=== PATIENT | female | born 1985 | race Caucasian/White ===

== ENCOUNTER 2023-03-31 10:19 | Emergency (ER) | payer OTHER ==
[2023-03-31] MEDS ORDERED: Ketorolac Tromethamine 30 MG/ML VIAL ONE (11:10)
[2023-03-31] MEDS ORDERED: diphenhydrAMINE 50 MG/ML VIAL ONE (11:10)
[2023-03-31] MEDS ORDERED: Metoclopramide HCl 10 MG/2 ML VIAL ONE (11:10)
[2023-03-31 11:59] LABS: SARS-CoV-2 NAA Rapid Test DETECTED (NotDetected)
== END 2023-03-31 12:55 | disposition home or self-care (01) ==
LOC: CSHERS 10:19
DX: U07.1 COVID-19 (principal); G43.919 Migraine, unspecified, intractable, without status migrainosus; F17.210 Nicotine dependence, cigarettes, uncomplicated
CPT/HCPCS: 96365; 96375; J1200; J1885; J2765

== ENCOUNTER 2023-12-11 11:50 | Emergency (ER) | payer OTHER, MEDICAID ==
[~2023-12-11 11:50] MED LIST: Iopamidol 300 61% 100 ML VIAL FS ONE
[2023-12-11] MEDS ORDERED: Ondansetron PF 4 MG/2 ML Vial ONE (12:17)
[2023-12-11] MEDS ORDERED: Ketorolac Tromethamine 30 MG (1 mL) VIAL ONE (12:17)
[2023-12-11 12:45] LABS: #Basophils 0.1 10x3/uL (0.0-0.2); #Monocytes 0.9 10x3/uL (0.0-1.1); #Neutrophils 18.6 10x3/uL (1.5-8.4); %Basophils 0.4 % (0.0-2.0); %Eosinophils 0.1 % (0.0-6.0); %Lymphocytes 8.8 % (18.0-47.0); %Monocytes 4.3 % (0.0-10.0); %Neutrophils 85.6 % (40.0-75.0); Mean Corpuscular HGB CONC 28.6 g/dL (32.0-36.0); Mean Corpuscular Hemoglobin 17.5 pg (27.0-33.0); Mean Corpuscular Volume 61.1 fl (81.6-98.3); Mean Platelet Volume 9.7 fl (7.4-10.4); Platelet Count 453 10x3/uL (150-450); RBC Distribution Width 19.7 % (11.5-14.5); Red Blood Cell (RBC) Count 4.58 10x6/uL (3.90-5.03); White Blood Cell (WBC) Count 21.7 10x3/uL (3.5-10.5)
[2023-12-11 12:56] LABS: BHCG - Serum Negative (NEGATIVE)
[2023-12-11 12:57] LABS: Pregs Control Background? CLEAR/WHITE (CLR/WHITE); Pregs Control Bar Appear? YES (CONTROL BAR)
[2023-12-11 13:01] LABS: ALT (SGPT) 12 U/L (8-55); AST (SGOT) 25 U/L (5-34); Albumin 4.2 g/dL (3.5-5.0); Alkaline Phosphatase 62 U/L (40-110); Anion Gap 15 mmol/L (10-20); BUN (Urea Nitrogen) 10 mg/dL (7.0-18.7); Bilirubin, Total 0.3 mg/dL (0.2-1.2); Calc. Creatinine Clearance 0 mL/min (70-130); Calcium 8.9 mg/dL (7.8-10.44); Carbon Dioxide 23 mmol/L (22-29); Chloride 101 mmol/L (98-107); Estimated GFR 112; Globulin 3.4 g/dL (2.4-3.5); Glucose 101 mg/dL (70-105); Lipase 38 U/L (8-78); Potassium 3.2 mmol/L (3.5-5.1); Protein, Total 7.6 g/dL (6.0-8.3); Sodium 136 mmol/L (136-145)
[2023-12-11 13:15] LABS: Microcytosis MARKED = >30 cells (100X) (0-5/hpf)
[2023-12-11 13:17] LABS: Hypochromia MODERATE=16-30 cells (100X) (0-5/hpf); Stomatocytes MODERATE= 6-15 cells (100X) (0-1/hpf)
[2023-12-11 16:09] LABS: Bilirubin Neg (Negative); Blood, Urine Negative (Negative); Clarity Clear (Clear); Glucose, Urine (Dipstick) Normal (Negative); Ketone, Urine Negative (Negative); Leukocyte Negative (Negative); Nitrite Negative (Negative); Protein, Urine (Dipstick) 15 mg/dl (Neg-Trace); Urobilinogen Normal mg/dL (Less than 2)
[2023-12-11 16:25] LABS: CAUTI Indications for Culture Pelvic or flank pain; RBC/HPF None Seen HPF (0-3); WBC/HPF 0-3 HPF (0-3)
[2023-12-11 16:26] LABS: Bacteria/HPF Rare-Few HPF (None Seen)
[2023-12-11 16:27] LABS: Urine Culture Reflex No No
[2023-12-11] MEDS ORDERED: Potassium Chloride 20 MEQ TAB ONE (16:27)
== END 2023-12-11 16:24 | disposition home or self-care (01) ==
LOC: CSHERS 11:50
DX: N83.201 Unspecified ovarian cyst, right side (principal); J45.909 Unspecified asthma, uncomplicated
CPT/HCPCS: 74177; 76856; 80053; 81001; 83690; 84703; 85025; 93976; 96361; 96374; 96375; J1885; J2405; Q9967